=== PATIENT | male | born 1935 | race Caucasian/White ===

== ENCOUNTER → 2021-03-04 | Outpatient (CLI) | payer OTHER ==
[2021-03-04 11:52] LABS: Creatinine Urine 50.9 mg/dL (27.00-270.00)
[2021-03-04 12:11] LABS: Protein, Urine Quantitative 9.5 mg/dL (0.0-11.9)
== END | disposition home or self-care (01) ==
LOC: LAB SHORT 10:06 → LAB FUT 02-24 16:30
PROVIDERS: Internal Medicine Nephrology
DX: N18.30 Chronic kidney disease, stage 3 unspecified (principal); D63.1 Anemia in chronic kidney disease; N25.81 Secondary hyperparathyroidism of renal origin; E55.9 Vitamin D deficiency, unspecified; R32 Unspecified urinary incontinence; R94.6 Abnormal results of thyroid function studies; R94.5 Abnormal results of liver function studies; R76.9 Abnormal immunological finding in serum, unspecified
CPT/HCPCS: 81050; 82043; 82570; 84156

== ENCOUNTER → 2023-01-10 | Outpatient (CLI) | payer OTHER ==
[2023-01-10 19:43] LABS: Bacteria Few /hpf; Red Blood Cells, Urine 0-2 /hpf (0-2); Squamous Epithelial Cells Rare /hpf (Few); White Blood Cells, Urine 0-2 /hpf (0-5)
[2023-01-10 19:44] LABS: Amorphous Light (0-Heavy); Mucus Light (0-Heavy)
== END | disposition home or self-care (01) ==
LOC: LAB SHORT 17:34 → LAB 17:34
PROVIDERS: Family Medicine
DX: R31.0 Gross hematuria (principal)
CPT/HCPCS: 81015